=== PATIENT | male | born 1975 | race Caucasian/White ===

== ENCOUNTER 2017-07-11 22:37 | Emergency (ER) | payer MEDICAID ==
[~2017-07-11] VITALS: Ht 172.7 cm; Wt 104.3 kg
[~2017-07-11 22:37] MED LIST: RISP3TAB5 PO
[2017-07-11 23:50] VITALS: BP_SYST 132
--- NOTE | 2017-07-11 23:50 | NUR ---
Pt ambulatory, a/o x 4, c/o cough and shortness of breath. Patient reported he smokes half a pack a day. He denied any recent fevers, nausea or vomiting. He denied any ear pain or sore throat. He denied any rash. Pt with normal resp effort, +dry cough and mild wheezes. Pt reported rib pain when coughing. ER MD aware of pt's arrival.
--- NOTE | 2017-07-11 23:50 | NUR ---
Pt ambulatory to chair for evaluation
--- NOTE | 2017-07-11 23:55 | NUR ---
TARI Bass at bedside examining patient.
[2017-07-12] MEDS ORDERED: ALBUTEROL SULFATE 0.083% 2.5 MG/3 ML VIAL.NEB INH ONE (00:45)
--- NOTE | 2017-07-12 01:10 | NUR ---
ER discussed xray result with patient
[2017-07-12 01:15] VITALS: BP_SYST 130
--- NOTE | 2017-07-12 01:15 | NUR ---
Patient given written and verbal discharge instructions by Bertrand LANTIGUA and verbalizes understanding. ER MD discussed with patient the results and treatment provided. Patient in stable condition. ID arm band removed. Rx of Robitussin and Azithromycin given. Patient educated on pain management and to follow up with PMD. Pain Scale 2/10. Opportunity for questions provided and answered.
== END 2017-07-12 01:15 | disposition home or self-care (01) ==
LOC: SED 22:37
DX: J40 Bronchitis, not specified as acute or chronic (principal); F17.210 Nicotine dependence, cigarettes, uncomplicated; Z71.6 Tobacco abuse counseling
CPT/HCPCS: 71045; 94640; 99283